=== PATIENT | male | born 1985 | race Caucasian/White ===

== ENCOUNTER 2019-11-24 16:45 | Emergency (ER) | payer OTHER ==
[~2019-11-24] VITALS: Ht 188 cm; Wt 83.9 kg
[2019-11-24 17:01] VITALS: BP 138/106
[2019-11-24] MEDS ORDERED: ACETAMINOPHEN 325 MG TAB PO ONE (17:35)
[2019-11-24] MEDS ORDERED: NACL 0.9% 1,000 ML IV ONE (17:35)
[2019-11-24] MEDS ORDERED: diphenhydrAMINE 50 MG/ML VIAL IVP ONE (17:35)
[2019-11-24] MEDS ORDERED: METOCLOPRAMIDE 10 MG/2 ML INJ VIAL IVP ONE (17:35)
[2019-11-24 17:57] LABS: BASOPHILS % (AUTO) 0.3 % (0.0-2.0); EOSINOPHILS % (AUTO) 0.3 % (0.0-4.0); HEMATOCRIT 47.3 % (36-52); HEMOGLOBIN 15.7 g/dL (12.0-18.0); LYMPHOCYTES # (AUTO) 1.1 K/uL (2.0-11.5); LYMPHOCYTES % (AUTO) 27.2 % (20.5-51.1); MEAN CORPUSCULAR HEMOGLOBIN 29 pg (27-31); MEAN CORPUSCULAR HGB CONC 33 g/dL (33-37); MONOCYTES # (AUTO) 0.4 K/uL (0.8-1.0); MONOCYTES % (AUTO) 8.8 % (1.7-9.3); NEUTROPHILS # (AUTO) 2.6 K/uL (1.8-7.7); NEUTROPHILS % (AUTO) 63.4 % (42.2-75.2); PLATELET COUNT (AUTO) 186 K/uL (140-450); RED CELL DISTRIBUTION WIDTH 12.9 % (11.6-13.7); WHITE BLOOD COUNT (AUTO) 4.1 K/uL (4.8-10.8)
[2019-11-24 18:06] LABS: ANION GAP 11.4 (8-16); CARBON DIOXIDE 29.3 mmol/L (21-32); CREATININE 1.4 mg/dL (0.6-1.3); POTASSIUM 3.7 mmol/L (3.5-5.1)
[2019-11-24 18:19] LABS: PROTHROMBIN TIME 10.8 secs (10.8-13.4)
[2019-11-24 19:16] VITALS: BP 120/63
== END 2019-11-24 19:16 | disposition home or self-care (01) ==
LOC: MED 16:45
DX: R51 Headache (principal); Z20.828 Contact with and (suspected) exposure to other viral communicable diseases
CPT/HCPCS: 36415; 80048; 85025; 85610; 96361; 96374; 96375; 99284; J1200; J2765; J7030

== ENCOUNTER 2019-11-27 11:47 | Emergency (ER) | payer OTHER, SELFPAY ==
[~2019-11-27] VITALS: Ht 188 cm; Wt 83.9 kg
[2019-11-27 12:02] VITALS: BP 133/87
--- NOTE | 2019-11-27 12:10 | NUR ---
Pt ambulated to bed 1.
--- NOTE | 2019-11-27 12:20 | NUR ---
34 y/o male from home c/o headache, dizziness, fever, eye pain and lower back pain x 5 days. Pt denies N/V/D. Was seen at [facility] 2 days ago for same symptoms and tested for covid and informed to return if worsening symptoms. Pt states pain started in neck and traveled to frontal region of head. Denies blurred vision/change in hearing. Awake and alert, denies respiratory symtpoms. Positioned for comfort, HOB elevated, bed locked and in lowest position medhx: anxiety, bipolar, trigeminal neuralgia
--- NOTE | 2019-11-27 12:22 | NUR ---
Dr Conn at bedside examining pt
[2019-11-27] MEDS ORDERED: NACL 0.9% 1,000 ML IV ONE ×3 (12:30→15:35)
[2019-11-27] MEDS ORDERED: ONDANSETRON 4 MG/2 ML VIAL IVP ONE (12:30)
[2019-11-27] MEDS ORDERED: MORPHINE SULFATE 4 MG/ML SYR IVP ONE (12:30)
--- NOTE | 2019-11-27 12:39 | NUR ---
20G IV placed to right ac, blood and cultures drawn at this time
--- NOTE | 2019-11-27 12:40 | NUR ---
Influenza, RSV, and covid swab collected at this time
--- NOTE | 2019-11-27 13:05 | NUR ---
Pt to CT via [facility]
[2019-11-27 13:13] LABS: BASOPHILS % (AUTO) 0.8 % (0.0-2.0); EOSINOPHILS # (AUTO) 0.2 K/uL (0-0.4); EOSINOPHILS % (AUTO) 3.3 % (0.0-4.0); HEMATOCRIT 46.3 % (36-52); HEMOGLOBIN 15.6 g/dL (12.0-18.0); LYMPHOCYTES % (AUTO) 38.8 % (20.5-51.1); MEAN CORPUSCULAR HEMOGLOBIN 29 pg (27-31); MEAN CORPUSCULAR HGB CONC 34 g/dL (33-37); MONOCYTES # (AUTO) 0.7 K/uL (0.8-1.0); MONOCYTES % (AUTO) 13.2 % (1.7-9.3); NEUTROPHILS # (AUTO) 2.2 K/uL (1.8-7.7); NEUTROPHILS % (AUTO) 43.9 % (42.2-75.2); PLATELET COUNT (AUTO) 172 K/uL (140-450); RED BLOOD CELL COUNT(AUTO) 5.45 MIL/uL (4.20-6.10); RED CELL DISTRIBUTION WIDTH 12.7 % (11.6-13.7); WHITE BLOOD COUNT (AUTO) 5.1 K/uL (4.8-10.8)
--- NOTE | 2019-11-27 13:19 | NUR ---
Pt returned from CT via [facility], given urinal for collection of urine
[2019-11-27 13:59] LABS: RSV NEGATIVE (NEGATIVE)
[2019-11-27 14:13] LABS: ANION GAP 17.4 (8-16); CARBON DIOXIDE 25.4 mmol/L (21-32); CREATININE 1.2 mg/dL (0.6-1.3); POTASSIUM 3.8 mmol/L (3.5-5.1); THYROID STIMULATING HORMONE 3.5 uIU/mL (0.34-3.74); TOTAL BILIRUBIN 0.5 mg/dL (0.0-1.0)
[2019-11-27] MEDS ORDERED: diphenhydrAMINE 50 MG/ML VIAL IVP ONE (14:20)
[2019-11-27] MEDS ORDERED: METOCLOPRAMIDE 10 MG/2 ML INJ VIAL IVP ONE (14:20)
[2019-11-27 14:25] LABS: PROTHROMBIN TIME 10.1 secs (10.8-13.4)
--- NOTE | 2019-11-27 15:20 | NUR ---
Pt resting in bed with eyes closed, states decrease in headache. VSS, will continue to monitor
[2019-11-27] MEDS ORDERED: LIDOCAINE MPF 1% 10 MG/ML VIAL INJ ONE (16:40)
[2019-11-27] MEDS ORDERED: LORazepam 2 MG/ML VIAL IVP ONE (16:40)
--- NOTE | 2019-11-27 17:00 | NUR ---
Dr Conn at bedside for lumbar puncture. Pt tolerated procedure well. CSF collected and sent to lab.
--- NOTE | 2019-11-27 17:10 | NUR ---
Pt instructed to lie completely flat for approximately 30 minutes. Pt verbalized understanding.
[2019-11-27 18:54] VITALS: BP 128/88
--- NOTE | 2019-11-27 18:55 | NUR ---
Patient discharged with v/s stable. Written and verbal after care instructions given and explained. Patient alert, oriented and verbalized understanding of instructions. Ambulatory with steady gait. All questions addressed prior to discharge. ID band removed. Patient advised to follow up with PMD. Rx of Reglan 10mg and [place] 5mg-325mg given. Patient educated on indication of medication including possible reaction and side effects. Opportunity to ask questions provided and answered.
[2019-11-27 19:33] LABS: APPEARANCE,URINE CLEAR (CLEAR); BILIRUBIN,URINE NEGATIVE (NEGATIVE); BLOOD, URINE NEGATIVE (NEGATIVE); COLOR,URINE YELLOW (YELLOW); LEUKOCYTE ESTERASE ,URINE NEGATIVE (NEGATIVE); NITRITE, URINE NEGATIVE (NEGATIVE); UGLUCOSE NEGATIVE (NEGATIVE)
== END 2019-11-27 18:55 | disposition home or self-care (01) ==
LOC: MED 11:47
DX: R50.9 Fever, unspecified (principal); R51 Headache; M79.10 Myalgia, unspecified site; F31.9 Bipolar disorder, unspecified; F41.9 Anxiety disorder, unspecified; G50.0 Trigeminal neuralgia; Z20.828 Contact with and (suspected) exposure to other viral communicable diseases
CPT/HCPCS: 36415; 62270; 70450; 80053; 81003; 82728; 82948; 83605; 83615; 84157; 84443; 85025; 85610; 85730; 86140; 87040; 87086; 87420; 87804; 96361; 96374; 96375; 99285; J1200; J2001; J2060; J2270; J2405; J2765; J7030; U0003